=== PATIENT | female | born 1980 | race Caucasian/White ===

== ENCOUNTER 2016-08-05 09:26 | Inpatient (IN) | payer MEDICARE, MEDICAID ==
[~2016-08-05] VITALS: Ht 165.1 cm; Wt 52.8 kg
[~2016-08-05 09:26] MED LIST: BENZ1TAB10 PO; DOCU250C91 PO; LITH300C3 PO; PALI3 PO
[2016-08-05] MEDS ORDERED: HALOPERIDOL LACTATE 5 MG/ML VIAL IM ONE (10:00)
[2016-08-05] MEDS ORDERED: DiphenhydrAMINE HCL 50 MG/ML VIAL IM ONE (10:00)
[2016-08-05] MEDS ORDERED: LORazepam 2 MG/ML VIAL IM ONE (10:00)
[2016-08-05] MEDS ORDERED: CLON.1 PO (10:11)
[2016-08-05] MEDS ORDERED: PROP10 PO (10:11)
[2016-08-05 10:37] LABS: BASOPHILS # (AUTO) 0.02 K/uL (0.00-0.20); BASOPHILS % (AUTO) 0.2 % (0.0-2.0); EOSINOPHILS # (AUTO) 0.28 K/uL (0.00-0.70); HEMATOCRIT 38.2 % (36-46); HEMOGLOBIN 12.8 g/dL (12.0-16.0); LYMPHOCYTES # (AUTO) 1.3 K/uL (1.0-4.8); LYMPHOCYTES % (AUTO) 10.4 % (22.0-44.0); MEAN CORPUSCULAR HEMOGLOBIN 29.6 pg (26.0-34.0); MEAN CORPUSCULAR HGB CONC 33.5 G/dL (31.0-37.0); MEAN CORPUSCULAR VOLUME 88 fL (80-100); MONOCYTES # (AUTO) 0.7 K/uL (0.1-1.0); MONOCYTES % (AUTO) 5.4 % (2.0-9.0); NEUTROPHILS # (AUTO) 9.9 K/uL (1.8-7.7); NEUTROPHILS % (AUTO) 81.7 % (40.0-70.0); PLATELET COUNT (AUTO) 221 K/uL (150-450); RED BLOOD CELL COUNT(AUTO) 4.33 MIL/uL (4.00-5.20); RED CELL DISTRIBUTION WIDTH 14.8 % (11.5-14.5); WHITE BLOOD COUNT (AUTO) 12.1 K/uL (4.5-11.0)
[2016-08-05 10:45] LABS: ANION GAP 8 mmol/L (8-16); CALCIUM, TOTAL 8.7 mg/dL (8.8-10.5); CARBON DIOXIDE 29 mmol/L (22-29); CHLORIDE 103 mmol/L (98-107); GLOMERULAR FILTR. RATE CALC > 60 mL/min (>60); POTASSIUM 3.9 mmol/L (3.5-5.1); SODIUM SERUM 140 mmol/L (136-145); UREA NITROGEN, BLOOD 9 mg/dL (7-18)
[2016-08-05 10:51] LABS: ALANINE AMINOTRANSFERASE 250 U/L (12-78); ALBUMIN 3.8 g/dL (3.4-5.0); ASPARTATE AMINOTRANSFERASE 35 U/L (15-37); BILIRUBIN,TOTAL 0.6 mg/dL (0.1-1.0); TOTAL PROTEIN, SERUM 8.3 g/dL (6.4-8.2)
[2016-08-05] MEDS ORDERED: HydrOXYzine PAMOATE 50 MG CAPSULE PO PRN (12:15)
[2016-08-05] MEDS ORDERED: GuaiFENesin/D-METHORPHAN [SUGAR-FREE] 200-20MG/10 ML SYRUP UDCUP PO PRN (12:15)
[2016-08-05] MEDS ORDERED: ACETAMINOPHEN 325 MG TABLET PO PRN (12:15)
[2016-08-05] MEDS ORDERED: MAGNESIUM HYDROXIDE SUSPENSION 30 ML UDCUP PO PRN (12:15)
[2016-08-05] MEDS ORDERED: ZOLPIDEM TARTRATE 10 MG TABLET PO PRN (12:15)
[2016-08-05] MEDS ORDERED: TUBERCULIN, PURIFIED PROTEIN DERIVATIVE 5 TU/0.1 ML SYG ID ONE (12:15)
[2016-08-05] MEDS ORDERED: LOPERAMIDE HCL 2 MG CAPSULE PO PRN (12:15)
[2016-08-05] MEDS ORDERED: MAG HYDROX/AL HYDROX/SIMETH ES 30 ML SUSPENSION UDCUP PO PRN (12:15)
[2016-08-05] MEDS ORDERED: PROMETHAZINE HCL 25 MG TABLET PO PRN (12:15)
[2016-08-05] MEDS ORDERED: PALIPERIDONE 3 MG ER TABLET PO PRN (12:15)
[2016-08-05] MEDS ORDERED: INFLUENZA VIRUS VACCINE QVS 2016-17 (3YR+)/PF 60 MCG/0.5 ML SYRINGE IM ONE (21:30)
[2016-08-05 21:31] VITALS: BP 106/65
[2016-08-05] MEDS: PALIPERIDONE 3 MG ER TABLET PO SCH (21:38)
[2016-08-05] MEDS: THIAMINE HCL 100 MG TABLET PO SCH (21:38)
[2016-08-06] MEDS: LITHIUM CARBONATE 300 MG CAPSULE PO SCH ×3 (06:38→17:01)
[2016-08-06] MEDS: LORazepam 2 MG TABLET PO PRN ×2 (06:38→17:01)
[2016-08-06 07:55] LABS: BASOPHILS % (AUTO) 0.3 % (0.0-2.0); EOSINOPHILS % (AUTO) 2.3 % (1.0-6.0); HEMATOCRIT 37.1 % (36-46); HEMOGLOBIN 12.4 g/dL (12.0-16.0); LYMPHOCYTES # (AUTO) 1.6 K/uL (1.0-4.8); LYMPHOCYTES % (AUTO) 13.2 % (22.0-44.0); MEAN CORPUSCULAR HEMOGLOBIN 29.6 pg (26.0-34.0); MEAN CORPUSCULAR HGB CONC 33.3 G/dL (31.0-37.0); MEAN CORPUSCULAR VOLUME 89 fL (80-100); MONOCYTES # (AUTO) 0.7 K/uL (0.1-1.0); MONOCYTES % (AUTO) 5.8 % (2.0-9.0); NEUTROPHILS # (AUTO) 9.3 K/uL (1.8-7.7); NEUTROPHILS % (AUTO) 78.4 % (40.0-70.0); PLATELET COUNT (AUTO) 226 K/uL (150-450); RED BLOOD CELL COUNT(AUTO) 4.18 MIL/uL (4.00-5.20); RED CELL DISTRIBUTION WIDTH 14.3 % (11.5-14.5); WHITE BLOOD COUNT (AUTO) 11.9 K/uL (4.5-11.0)
[2016-08-06 08:06] LABS: HEMOGLOBIN A1C 5.4 % (4.5-6.2)
[2016-08-06 08:17] VITALS: BP 100/58
[2016-08-06 09:00] LABS: ALANINE AMINOTRANSFERASE 170 U/L (12-78); ALBUMIN 3.2 g/dL (3.4-5.0); ANION GAP 6 mmol/L (8-16); ASPARTATE AMINOTRANSFERASE 32 U/L (15-37); BILIRUBIN,TOTAL 0.6 mg/dL (0.1-1.0); CALCIUM, TOTAL 8.3 mg/dL (8.8-10.5); CARBON DIOXIDE 29 mmol/L (22-29); CHLORIDE 103 mmol/L (98-107); CHOL/HDL RATIO 3.1 (3.9-5.7); CREATININE 0.74 mg/dL (0.60-1.30); GLOMERULAR FILTR. RATE CALC > 60 mL/min (>60); POTASSIUM 4.1 mmol/L (3.5-5.1); SODIUM SERUM 138 mmol/L (136-145); THYROID STIMULATING HORMONE 0.45 uIU/mL (0.36-3.74); TOTAL PROTEIN, SERUM 7.4 g/dL (6.4-8.2); UREA NITROGEN, BLOOD 14 mg/dL (7-18)
[2016-08-06] MEDS ORDERED: PALIPERIDONE PALMITATE 234 MG/1.5 ML SYRINGE IM ONE (09:00)
[2016-08-06] MEDS: FOLIC ACID 1 MG TABLET PO SCH (09:23)
[2016-08-06] MEDS: MULTIVITAMINS WITH MINERALS, THERAPEUTIC TABLET PO SCH (09:23)
[2016-08-06] MEDS: NALTREXONE HCL 50 MG TABLET PO SCH (09:23)
[2016-08-06] MEDS: THIAMINE HCL 100 MG TABLET PO SCH ×2 (09:23→17:01)
[2016-08-06 16:00] VITALS: BP 112/62
[2016-08-06] MEDS: PALIPERIDONE 3 MG ER TABLET PO SCH (20:20)
[2016-08-07] MEDS: LITHIUM CARBONATE 300 MG CAPSULE PO SCH ×3 (06:16→16:25)
[2016-08-07 08:01] VITALS: BP 114/60
[2016-08-07] MEDS: FOLIC ACID 1 MG TABLET PO SCH (08:30)
[2016-08-07] MEDS: NALTREXONE HCL 50 MG TABLET PO SCH (08:30)
[2016-08-07] MEDS: THIAMINE HCL 100 MG TABLET PO SCH ×2 (08:31→16:25)
[2016-08-07] MEDS: MULTIVITAMINS WITH MINERALS, THERAPEUTIC TABLET PO SCH (08:31)
[2016-08-07] MEDS ORDERED: ARIPiprazole 5 MG TABLET PO PRN (15:00)
[2016-08-07] MEDS ORDERED: ARIPiprazole ER SUSPENSION 400 MG PRE-FILLED DUAL CHAMBER SYRINGE IM ONE (15:00)
[2016-08-07 16:06] VITALS: BP 106/60
[2016-08-07] MEDS: LORazepam 2 MG TABLET PO PRN (16:25)
[2016-08-07] MEDS: ARIPiprazole 15 MG TABLET PO SCH (20:37)
[2016-08-08 03:49] VITALS: BP 132/79
[2016-08-08] MEDS: LORazepam 2 MG TABLET PO PRN (03:53)
[2016-08-08] MEDS: LITHIUM CARBONATE 300 MG CAPSULE PO SCH ×3 (07:09→16:28)
[2016-08-08 08:03] VITALS: BP 112/69
[2016-08-08] MEDS: THIAMINE HCL 100 MG TABLET PO SCH ×2 (08:43→16:28)
[2016-08-08] MEDS: NALTREXONE HCL 50 MG TABLET PO SCH (08:43)
[2016-08-08] MEDS: FOLIC ACID 1 MG TABLET PO SCH (08:43)
[2016-08-08] MEDS: MULTIVITAMINS WITH MINERALS, THERAPEUTIC TABLET PO SCH (08:43)
[2016-08-08] MEDS ORDERED: ARIP15TA3 PO (14:11)
[2016-08-08] MEDS ORDERED: LITH300C3 PO (14:11)
[2016-08-08] MEDS ORDERED: ARIP400S3 IM (14:11)
[2016-08-08] MEDS ORDERED: NALT50 PO (14:11)
[2016-08-08 16:05] VITALS: BP 100/68
[2016-08-08] MEDS: ARIPiprazole 15 MG TABLET PO SCH (20:04)
[2016-08-09] MEDS: LITHIUM CARBONATE 300 MG CAPSULE PO SCH ×2 (06:55→12:27)
[2016-08-09] MEDS: NALTREXONE HCL 50 MG TABLET PO SCH (08:08)
[2016-08-09] MEDS: THIAMINE HCL 100 MG TABLET PO SCH (08:08)
[2016-08-09] MEDS: MULTIVITAMINS WITH MINERALS, THERAPEUTIC TABLET PO SCH (08:08)
[2016-08-09] MEDS: FOLIC ACID 1 MG TABLET PO SCH (08:08)
[2016-08-09 08:20] VITALS: BP 105/62
[2016-08-10] MEDS ORDERED: PALIPERIDONE PALMITATE 156 MG/ML SYRINGE IM ONE (09:00)
[2016-09-04] MEDS ORDERED: ARIPiprazole ER SUSPENSION 400 MG PRE-FILLED DUAL CHAMBER SYRINGE IM SCH (09:00)
== END 2016-08-09 13:25 | disposition home or self-care (01) | DRG 885 ==
LOC: EDSTATUS 09:26 → EMS 09:45 → B3A 20:23
PROVIDERS: ATTEND Psychiatry & Neurology Psychiatry
DX: F25.9 Schizoaffective disorder, unspecified (principal); R45.851 Suicidal ideations; F19.20 Other psychoactive substance dependence, uncomplicated; I10 Essential (primary) hypertension; F17.210 Nicotine dependence, cigarettes, uncomplicated; F10.20 Alcohol dependence, uncomplicated; B19.20 Unspecified viral hepatitis C without hepatic coma; Z79.899 Other long term (current) drug therapy; Z91.14 Patient's other noncompliance with medication regimen; Z86.2 Personal history of diseases of the blood and blood-forming organs and certain disorders involving the immune mechanism; Z88.5 Allergy status to narcotic agent; Z88.8 Allergy status to other drugs, medicaments and biological substances; Z91.040 Latex allergy status; Z98.890 Other specified postprocedural states; Z28.21 Immunization not carried out because of patient refusal
CPT/HCPCS: 83036; 84439; 84443; 86592; 96372; 99285; G0480; J0401; J1200; J1630; J2060

== ENCOUNTER 2016-10-12 09:54 | Inpatient (IN) | payer MEDICARE, MEDICAID ==
[~2016-10-12] VITALS: Ht 165.1 cm; Wt 56.8 kg
[~2016-10-12 09:54] MED LIST changes: +ARIP15TA3 PO; +ARIP400S3 IM; -BENZ1TAB10 PO; -DOCU250C91 PO; +NALT50 PO; -PALI3 PO
[2016-10-12 10:12] LABS: GLUCOSE,POINT OF CARE 110 MG/DL (70-110)
[2016-10-12 10:29] LABS: BASOPHILS # (AUTO) 0.01 K/uL (0.00-0.20); BASOPHILS % (AUTO) 0.1 % (0.0-2.0); EOSINOPHILS # (AUTO) 0.51 K/uL (0.00-0.70); EOSINOPHILS % (AUTO) 5.37 % (1.0-6.0); HEMATOCRIT 41.5 % (36-46); HEMOGLOBIN 13.4 g/dL (12.0-16.0); LYMPHOCYTES # (AUTO) 2.5 K/uL (1.0-4.8); LYMPHOCYTES % (AUTO) 25.9 % (22.0-44.0); MEAN CORPUSCULAR HEMOGLOBIN 29.6 pg (26.0-34.0); MEAN CORPUSCULAR HGB CONC 32.4 G/dL (31.0-37.0); MEAN CORPUSCULAR VOLUME 91 fL (80-100); MONOCYTES # (AUTO) 0.7 K/uL (0.1-1.0); MONOCYTES % (AUTO) 7.1 % (2.0-9.0); NEUTROPHILS # (AUTO) 5.8 K/uL (1.8-7.7); NEUTROPHILS % (AUTO) 61.6 % (40.0-70.0); PLATELET COUNT (AUTO) 243 K/uL (150-450); RED BLOOD CELL COUNT(AUTO) 4.55 MIL/uL (4.00-5.20); RED CELL DISTRIBUTION WIDTH 14.3 % (11.5-14.5); WHITE BLOOD COUNT (AUTO) 9.5 K/uL (4.5-11.0)
[2016-10-12 10:53] LABS: ALANINE AMINOTRANSFERASE 486 U/L (12-78); ANION GAP 7 mmol/L (8-16); ASPARTATE AMINOTRANSFERASE 133 U/L (15-37); BILIRUBIN,TOTAL 0.5 mg/dL (0.1-1.0); CARBON DIOXIDE 30 mmol/L (22-29); CHLORIDE 103 mmol/L (98-107); POTASSIUM 4.1 mmol/L (3.5-5.1); SODIUM SERUM 140 mmol/L (136-145); TOTAL PROTEIN, SERUM 8.2 g/dL (6.4-8.2); UREA NITROGEN, BLOOD 8 mg/dL (7-18)
[2016-10-12 10:55] LABS: LITHIUM < 0.20 mmol/L (0.60-1.20)
[2016-10-12 11:01] LABS: ALBUMIN 4.2 g/dL (3.4-5.0); GLOMERULAR FILTR. RATE CALC > 60 mL/min (>60)
[2016-10-12] MEDS ORDERED: DiphenhydrAMINE HCL 50 MG/ML VIAL IM ONE (11:15)
[2016-10-12] MEDS ORDERED: HALOPERIDOL LACTATE 5 MG/ML VIAL IM ONE (11:15)
[2016-10-12] MEDS ORDERED: LORazepam 2 MG/ML VIAL IM ONE (11:15)
[2016-10-12 20:00] VITALS: BP 120/71
[2016-10-12 20:39] LABS: APPEARANCE,URINE CLEAR (CLEAR); GLUCOSE, URINE (UA) NEGATIVE (NEGATIVE); KETONES,URINE NEGATIVE (NEGATIVE); LEUKOCYTE ESTERASE ,URINE NEGATIVE (NEGATIVE); OCCULT BLOOD,URINE NEGATIVE (NEGATIVE); PROTEIN,URINE NEGATIVE (NEGATIVE)
[2016-10-12 20:40] LABS: ADD UA MICROSCOPIC NO
[2016-10-13] MEDS: LITHIUM CARBONATE 300 MG CAPSULE PO SCH (17:31)
[2016-10-13 18:10] VITALS: BP 112/69
[2016-10-13] MEDS: LORazepam 2 MG TABLET PO PRN (19:21)
[2016-10-13] MEDS: ARIPiprazole 15 MG TABLET PO SCH (20:03)
[2016-10-13] MEDS ORDERED: ACETAMINOPHEN 325 MG TABLET PO PRN (21:30)
[2016-10-13] MEDS ORDERED: ALBUTEROL SULFATE HFA 90 MCG/PUFF 8 GM INHALER IH PRN (21:30)
[2016-10-14] MEDS: LITHIUM CARBONATE 300 MG CAPSULE PO SCH ×3 (07:02→16:24)
[2016-10-14] MEDS: LORazepam 2 MG TABLET PO PRN (11:40)
[2016-10-14] MEDS: HALOPERIDOL 5 MG TABLET PO PRN ×2 (11:40→15:44)
[2016-10-14] MEDS: IBUPROFEN 400 MG TABLET PO PRN (15:44)
[2016-10-14 16:02] VITALS: BP 113/62
[2016-10-14] MEDS: ARIPiprazole 15 MG TABLET PO SCH (20:27)
[2016-10-14] MEDS: ZOLPIDEM TARTRATE 10 MG TABLET PO PRN (20:27)
[2016-10-15] MEDS: LITHIUM CARBONATE 300 MG CAPSULE PO SCH ×2 (06:43→12:42)
[2016-10-15] MEDS: HALOPERIDOL 5 MG TABLET PO PRN ×2 (06:59→11:39)
[2016-10-15 08:02] LABS: HEMOGLOBIN A1C 5.5 % (4.5-6.2)
[2016-10-15 08:23] LABS: CHOL/HDL RATIO 3.4 (3.9-5.7); THYROID STIMULATING HORMONE 0.47 uIU/mL (0.36-3.74)
[2016-10-15 08:43] VITALS: BP 121/71
[2016-10-15] MEDS: LORazepam 2 MG TABLET PO PRN (11:39)
[2016-10-15] MEDS ORDERED: ARIPiprazole LAUROXIL ER SUSPENSION 882 MG/3.2 ML SYRINGE IM SCH (13:45)
[2016-10-15] MEDS ORDERED: LITH300T PO (13:47)
[2016-10-15] MEDS ORDERED: GABA-531 PO (13:47)
[2016-10-15] MEDS ORDERED: VIST50 PO (13:47)
[2016-10-15] MEDS ORDERED: ARIP882S IM (13:47)
[2016-10-15] MEDS ORDERED: ARIPiprazole LAUROXIL ER SUSPENSION 882 MG/3.2 ML SYRINGE IM ONE (15:00)
[2016-10-15] MEDS: GABAPENTIN 300 MG CAPSULE PO SCH (17:01)
[2016-10-15] MEDS: LITHIUM CARBONATE 600 MG CAPSULE PO SCH (17:01)
[2016-10-15 17:14] VITALS: BP 141/84
[2016-10-15] MEDS: ARIPiprazole 15 MG TABLET PO SCH (20:47)
[2016-10-16] MEDS: LITHIUM CARBONATE 600 MG CAPSULE PO SCH ×2 (07:02→16:35)
[2016-10-16 08:01] VITALS: BP 107/61
[2016-10-16] MEDS: GABAPENTIN 300 MG CAPSULE PO SCH ×3 (08:41→16:35)
[2016-10-16] MEDS: LORazepam 2 MG TABLET PO PRN (08:41)
[2016-10-16 17:51] VITALS: BP 127/79
[2016-10-16] MEDS: ARIPiprazole 15 MG TABLET PO SCH (20:30)
[2016-10-17] MEDS: ZOLPIDEM TARTRATE 10 MG TABLET PO PRN ×2 (02:29→23:56)
[2016-10-17] MEDS: LORazepam 2 MG TABLET PO PRN ×3 (02:29→23:57)
[2016-10-17] MEDS: LITHIUM CARBONATE 600 MG CAPSULE PO SCH ×3 (06:53→16:13)
[2016-10-17 08:02] VITALS: BP 93/54
[2016-10-17] MEDS: GABAPENTIN 300 MG CAPSULE PO SCH ×3 (09:14→16:13)
[2016-10-17 17:20] VITALS: BP 102/80
[2016-10-17] MEDS: ARIPiprazole 15 MG TABLET PO SCH (20:14)
[2016-10-18] MEDS: LITHIUM CARBONATE 600 MG CAPSULE PO SCH ×2 (06:56→17:31)
[2016-10-18] MEDS: GABAPENTIN 300 MG CAPSULE PO SCH ×3 (08:24→17:31)
[2016-10-18 08:25] VITALS: BP 100/63
[2016-10-18] MEDS: LORazepam 2 MG TABLET PO PRN (08:25)
[2016-10-18 11:23] VITALS: BP 115/76
[2016-10-18] MEDS: IBUPROFEN 400 MG TABLET PO PRN (11:23)
[2016-10-18 12:23] VITALS: BP 110/72
[2016-10-18 18:06] VITALS: BP 108/69
[2016-10-18] MEDS: ARIPiprazole 15 MG TABLET PO SCH (21:26)
[2016-10-19] MEDS: LITHIUM CARBONATE 600 MG CAPSULE PO SCH ×2 (06:57→16:40)
[2016-10-19 08:08] VITALS: BP 90/68
[2016-10-19] MEDS: GABAPENTIN 300 MG CAPSULE PO SCH ×3 (08:16→16:40)
[2016-10-19] MEDS: LORazepam 2 MG TABLET PO PRN (08:16)
[2016-10-19 16:59] VITALS: BP 121/69
[2016-10-19] MEDS: ARIPiprazole 15 MG TABLET PO SCH (20:15)
[2016-10-19] MEDS: ZOLPIDEM TARTRATE 10 MG TABLET PO PRN (23:01)
[2016-10-20] MEDS: LITHIUM CARBONATE 600 MG CAPSULE PO SCH ×2 (08:14→17:01)
[2016-10-20] MEDS: GABAPENTIN 300 MG CAPSULE PO SCH ×3 (08:15→17:01)
[2016-10-20] MEDS: LORazepam 2 MG TABLET PO PRN (08:15)
[2016-10-20] MEDS: IBUPROFEN 400 MG TABLET PO PRN (08:15)
[2016-10-20 08:51] VITALS: BP 106/58
[2016-10-20 09:51] VITALS: BP 110/60
[2016-10-20 16:18] VITALS: BP 110/69
[2016-10-20] MEDS: ARIPiprazole 15 MG TABLET PO SCH (20:18)
[2016-10-21] MEDS: LORazepam 2 MG TABLET PO PRN ×2 (05:24→13:06)
[2016-10-21] MEDS: GABAPENTIN 300 MG CAPSULE PO SCH ×3 (08:29→16:24)
[2016-10-21] MEDS: LITHIUM CARBONATE 600 MG CAPSULE PO SCH ×2 (08:29→16:23)
[2016-10-21 09:26] VITALS: BP 102/55
[2016-10-21 16:38] VITALS: BP 118/79
[2016-10-21] MEDS: ARIPiprazole 15 MG TABLET PO SCH (20:44)
[2016-10-22] MEDS: LITHIUM CARBONATE 600 MG CAPSULE PO SCH ×2 (10:36→16:57)
[2016-10-22] MEDS: GABAPENTIN 300 MG CAPSULE PO SCH ×3 (10:36→16:57)
[2016-10-22] MEDS: IBUPROFEN 400 MG TABLET PO PRN (13:48)
[2016-10-22 16:14] VITALS: BP 106/62
[2016-10-22] MEDS: LORazepam 2 MG TABLET PO PRN (16:57)
[2016-10-22] MEDS: ARIPiprazole 15 MG TABLET PO SCH (21:10)
[2016-10-23 06:22] VITALS: BP 94/53
[2016-10-23 08:14] VITALS: BP 101/62
[2016-10-23] MEDS: ARIPiprazole 15 MG TABLET PO SCH (09:07)
[2016-10-23] MEDS: LORazepam 2 MG TABLET PO PRN ×2 (09:07→17:38)
[2016-10-23] MEDS: HALOPERIDOL 5 MG TABLET PO PRN (09:07)
[2016-10-23] MEDS: LITHIUM CARBONATE 600 MG CAPSULE PO SCH ×2 (09:07→17:21)
[2016-10-23] MEDS: GABAPENTIN 300 MG CAPSULE PO SCH ×3 (09:07→17:21)
[2016-10-24 08:20] VITALS: BP 102/64
[2016-10-24] MEDS: LITHIUM CARBONATE 600 MG CAPSULE PO SCH ×2 (09:42→17:21)
[2016-10-24] MEDS: GABAPENTIN 300 MG CAPSULE PO SCH ×3 (09:42→17:21)
[2016-10-24] MEDS: LORazepam 2 MG TABLET PO PRN (14:49)
[2016-10-24 16:20] VITALS: BP 122/69
[2016-10-24] MEDS: ARIPiprazole 15 MG TABLET PO SCH (20:12)
[2016-10-25] MEDS: LITHIUM CARBONATE 600 MG CAPSULE PO SCH ×2 (07:55→16:01)
[2016-10-25] MEDS: GABAPENTIN 300 MG CAPSULE PO SCH ×3 (07:55→16:01)
[2016-10-25 08:00] VITALS: BP 103/59
[2016-10-25] MEDS ORDERED: TUBERCULIN, PURIFIED PROTEIN DERIVATIVE 5 TU/0.1 ML SYG ID ONE (10:45)
[2016-10-25] MEDS: LORazepam 2 MG TABLET PO PRN ×2 (12:37→15:50)
[2016-10-25 16:15] VITALS: BP 113/72
[2016-10-25] MEDS: ARIPiprazole 15 MG TABLET PO SCH (20:20)
[2016-10-26] MEDS: GABAPENTIN 300 MG CAPSULE PO SCH ×3 (08:11→16:31)
[2016-10-26] MEDS: LITHIUM CARBONATE 600 MG CAPSULE PO SCH ×2 (08:11→16:31)
[2016-10-26 08:17] VITALS: BP 102/58
[2016-10-26 17:05] VITALS: BP 104/60
[2016-10-26 18:29] VITALS: BP 115/65
[2016-10-26] MEDS: LORazepam 2 MG TABLET PO PRN (18:31)
[2016-10-26] MEDS: ARIPiprazole 15 MG TABLET PO SCH (20:38)
[2016-10-27 08:45] VITALS: BP 102/56
[2016-10-27] MEDS: LITHIUM CARBONATE 600 MG CAPSULE PO SCH ×2 (09:07→16:29)
[2016-10-27] MEDS: GABAPENTIN 300 MG CAPSULE PO SCH ×3 (09:08→16:29)
[2016-10-27] MEDS: LORazepam 2 MG TABLET PO PRN (09:09)
[2016-10-27] MEDS: IBUPROFEN 400 MG TABLET PO PRN (14:18)
[2016-10-27 17:06] VITALS: BP 100/64
[2016-10-27] MEDS: ARIPiprazole 15 MG TABLET PO SCH (20:44)
[2016-10-28] MEDS: LITHIUM CARBONATE 600 MG CAPSULE PO SCH ×2 (08:12→16:00)
[2016-10-28] MEDS: GABAPENTIN 300 MG CAPSULE PO SCH ×3 (08:12→16:00)
[2016-10-28 08:27] VITALS: BP 105/65
[2016-10-28 12:21] VITALS: BP 110/65
[2016-10-28] MEDS: IBUPROFEN 400 MG TABLET PO PRN (12:21)
[2016-10-28 13:21] VITALS: BP 115/65
[2016-10-28] MEDS: LORazepam 2 MG TABLET PO PRN (16:00)
[2016-10-28 16:28] VITALS: BP 108/60
[2016-10-28] MEDS: ARIPiprazole 15 MG TABLET PO SCH (20:45)
[2016-10-29 08:30] VITALS: BP 105/58
[2016-10-29] MEDS: GABAPENTIN 300 MG CAPSULE PO SCH ×3 (09:26→16:14)
[2016-10-29] MEDS: LITHIUM CARBONATE 600 MG CAPSULE PO SCH ×2 (09:26→16:15)
[2016-10-29 19:53] VITALS: BP 98/55
[2016-10-29] MEDS: ARIPiprazole 15 MG TABLET PO SCH (20:47)
[2016-10-30] MEDS: LORazepam 2 MG TABLET PO PRN (06:02)
[2016-10-30 06:13] VITALS: BP 107/64
[2016-10-30] MEDS: GABAPENTIN 300 MG CAPSULE PO SCH ×3 (08:54→16:21)
[2016-10-30] MEDS: LITHIUM CARBONATE 600 MG CAPSULE PO SCH ×2 (08:54→16:21)
[2016-10-30 11:08] VITALS: BP 99/58
[2016-10-30 17:05] VITALS: BP 96/56
[2016-10-30] MEDS: IBUPROFEN 400 MG TABLET PO PRN (17:06)
[2016-10-30] MEDS: ARIPiprazole 15 MG TABLET PO SCH (20:31)
[2016-10-31] MEDS: LITHIUM CARBONATE 600 MG CAPSULE PO SCH ×2 (08:03→16:40)
[2016-10-31] MEDS: GABAPENTIN 300 MG CAPSULE PO SCH ×3 (08:03→16:39)
[2016-10-31] MEDS: LORazepam 2 MG TABLET PO PRN (08:04)
[2016-10-31 09:47] VITALS: BP 112/71
[2016-10-31 17:08] VITALS: BP 107/69
[2016-10-31] MEDS: ARIPiprazole 15 MG TABLET PO SCH (21:10)
[2016-11-01 09:18] VITALS: BP 109/65
[2016-11-01] MEDS: LITHIUM CARBONATE 600 MG CAPSULE PO SCH ×2 (09:23→16:36)
[2016-11-01] MEDS: GABAPENTIN 300 MG CAPSULE PO SCH ×3 (09:23→16:36)
[2016-11-01] MEDS ORDERED: MAGNESIUM HYDROXIDE SUSPENSION 30 ML UDCUP PO PRN (10:00)
[2016-11-01] MEDS: DOCUSATE SODIUM 250 MG CAPSULE PO SCH (10:22)
[2016-11-01] MEDS: LORazepam 2 MG TABLET PO PRN (12:10)
[2016-11-01 19:10] VITALS: BP 111/68
[2016-11-01] MEDS: ARIPiprazole 15 MG TABLET PO SCH (20:30)
[2016-11-02] MEDS: DOCUSATE SODIUM 250 MG CAPSULE PO SCH (09:11)
[2016-11-02] MEDS: LITHIUM CARBONATE 600 MG CAPSULE PO SCH ×2 (09:11→16:14)
[2016-11-02] MEDS: GABAPENTIN 300 MG CAPSULE PO SCH ×3 (09:11→16:13)
[2016-11-02 09:15] VITALS: BP 114/74
[2016-11-02] MEDS: LORazepam 2 MG TABLET PO PRN (09:15)
[2016-11-02] MEDS: IBUPROFEN 400 MG TABLET PO PRN (09:17)
[2016-11-02 16:37] VITALS: BP 105/66
[2016-11-02] MEDS: ARIPiprazole 15 MG TABLET PO SCH (20:46)
[2016-11-03 08:00] VITALS: BP 104/64
[2016-11-03] MEDS: DOCUSATE SODIUM 250 MG CAPSULE PO SCH (08:34)
[2016-11-03] MEDS: LITHIUM CARBONATE 600 MG CAPSULE PO SCH ×2 (08:34→16:07)
[2016-11-03] MEDS: GABAPENTIN 300 MG CAPSULE PO SCH ×3 (08:34→16:07)
[2016-11-03] MEDS: IBUPROFEN 400 MG TABLET PO PRN (16:08)
[2016-11-03 16:43] VITALS: BP 124/71
[2016-11-03] MEDS: ARIPiprazole 15 MG TABLET PO SCH (20:31)
[2016-11-04] MEDS: ZOLPIDEM TARTRATE 10 MG TABLET PO PRN (00:49)
[2016-11-04] MEDS: DOCUSATE SODIUM 250 MG CAPSULE PO SCH (08:29)
[2016-11-04] MEDS: LITHIUM CARBONATE 600 MG CAPSULE PO SCH ×2 (08:29→16:23)
[2016-11-04] MEDS: GABAPENTIN 300 MG CAPSULE PO SCH ×3 (08:30→16:23)
[2016-11-04] MEDS: IBUPROFEN 400 MG TABLET PO PRN ×2 (11:16→19:20)
[2016-11-04 11:19] VITALS: BP 102/69
[2016-11-04 12:17] VITALS: BP 115/65
[2016-11-04 16:59] VITALS: BP 115/57
[2016-11-04 19:20] VITALS: BP 110/75
[2016-11-04] MEDS: ARIPiprazole 15 MG TABLET PO SCH (22:07)
[2016-11-05 02:20] VITALS: BP 113/73
[2016-11-05] MEDS: LORazepam 2 MG TABLET PO PRN (02:21)
[2016-11-05] MEDS: ZOLPIDEM TARTRATE 10 MG TABLET PO PRN (02:21)
[2016-11-05] MEDS: DOCUSATE SODIUM 250 MG CAPSULE PO SCH (08:25)
[2016-11-05] MEDS: LITHIUM CARBONATE 600 MG CAPSULE PO SCH (08:25)
[2016-11-05] MEDS: GABAPENTIN 300 MG CAPSULE PO SCH ×2 (08:25→12:13)
[2016-11-05] MEDS ORDERED: ARIP15TA3 PO (09:38)
[2016-11-05] MEDS ORDERED: LITH600 PO (09:38)
[2016-11-05] MEDS ORDERED: DOCU250C91 PO (09:38)
[2016-11-05 10:16] VITALS: BP 108/67
[2016-11-15] MEDS ORDERED: ARIPiprazole LAUROXIL ER SUSPENSION 882 MG/3.2 ML SYRINGE IM SCH (09:00)
== END 2016-11-05 14:00 | disposition home or self-care (01) | DRG 885 ==
LOC: EMS 09:56 → EEVIPCON 09:56 → 3EC 19:54 → 3EI 10-28 10:09
PROVIDERS: ADMIT Psychiatry & Neurology Psychiatry; ATTEND Psychiatry & Neurology Psychiatry
DX: F25.1 Schizoaffective disorder, depressive type (principal); F22 Delusional disorders; J44.9 Chronic obstructive pulmonary disease, unspecified; I10 Essential (primary) hypertension; F19.10 Other psychoactive substance abuse, uncomplicated; R45.87 Impulsiveness; F14.90 Cocaine use, unspecified, uncomplicated; R74.0 Nonspecific elevation of levels of transaminase and lactic acid dehydrogenase [LDH]; F60.9 Personality disorder, unspecified; D64.9 Anemia, unspecified; F10.20 Alcohol dependence, uncomplicated; F17.210 Nicotine dependence, cigarettes, uncomplicated; F15.90 Other stimulant use, unspecified, uncomplicated; F12.90 Cannabis use, unspecified, uncomplicated; Z88.8 Allergy status to other drugs, medicaments and biological substances; Z71.51 Drug abuse counseling and surveillance of drug abuser; Z91.83 Wandering in diseases classified elsewhere; Z88.6 Allergy status to analgesic agent; Z91.040 Latex allergy status; Z79.899 Other long term (current) drug therapy
CPT/HCPCS: 82962; 83036; 84443; 87081; 99285; G0480; J1200; J1630; J2060